=== PATIENT | female | born 1960 ===

== ENCOUNTER → 2017-11-28 | Outpatient (CLI) | payer OTHER ==
--- NOTE | 2017-11-28 20:11 | RADIOLOGY REPORT (SQ) ---
EXAM DESCRIPTION: CHEST 2 VIEWS W/AP LORDOTIC COMPLETED DATE/TIME: 11/28/2017 7:45 pm REASON FOR STUDY: LUNG NODULE COMPARISON: None. TECHNIQUE: Frontal, lateral, and apical lordotic radiographic views of the chest acquired. NUMBER OF VIEWS: Three views. LIMITATIONS: None. FINDINGS: LUNGS AND PLEURA: Hyperinflation. Tiny calcified granulomas in both lungs and 5 mm calcif ied granuloma in the mid right lung. No focal infiltrates, masses or pneumothorax. No pleural effusi on. MEDIASTINUM AND HILAR STRUCTURES: No masses or contour abnormalities. HEART AND VASCULAR STRUCTURES: Heart normal size. No evidence for failure. BONES: No acute findings. HARDWARE: None in the chest. OTHER: No other significant finding. IMPRESSION: COPD. CALCIFIED GRANULOMAS. NO OTHER SIGNIFICANT FINDINGS. TECHNICAL DOCUMENTATION: JOB ID: [id number] [employer]- All Rights Reserved Reading location - IP/workstation name: MIC
== END ==
LOC: RAD 19:22
PROVIDERS: ATTEND Family Medicine
DX: R91.1 Solitary pulmonary nodule (principal); J44.9 Chronic obstructive pulmonary disease, unspecified
CPT/HCPCS: 71047

== ENCOUNTER 2018-07-20 00:03 | Emergency (ER) | payer OTHER ==
[2018-07-20 00:58] LABS: HEMATOCRIT 38.7 % (36.0-47.0); HEMOGLOBIN 13.6 g/dL (12.0-15.5); MEAN CORPUSCULAR HEMOGLOBIN 32.7 pg (27.0-33.4); MEAN CORPUSCULAR HGB CONC 35.3 g/dL (32.0-36.0); MEAN CORPUSCULAR VOLUME 93 fl (80-97); PLATELET COUNT 150 10^3/uL (150-450); RED BLOOD COUNT 4.18 10^6/uL (3.72-5.28); RED CELL DISTRIBUTION WIDTH 13.2 % (11.5-14.0); WHITE BLOOD COUNT 15.8 10^3/uL (4.0-10.5)
[2018-07-20 01:16] LABS: ANION GAP 11 (5-19); BLOOD UREA NITROGEN 23 mg/dL (7-20); CALCIUM 9.1 mg/dL (8.4-10.2); CARBON DIOXIDE 25 mmol/L (22-30); CHLORIDE 104 mmol/L (98-107); GLUCOSE 129 mg/dL (75-110); POTASSIUM 4.1 mmol/L (3.6-5.0); SODIUM 139.6 mmol/L (137-145)
[2018-07-20 01:19] LABS: ABSOLUTE LYMPHOCYTES# (MANUAL) 0.9 10^3/uL (0.5-4.7); ABSOLUTE MONOCYTES # (MANUAL) 0.3 10^3/uL (0.1-1.4); ABSOLUTE NEUTROPHILS# (MANUAL) 14.5 10^3/uL (1.7-8.2); BASOPHILS % (MANUAL) 0 % (0-2); EOSINOPHILS % (MANUAL) 0 % (0-6); LYMPHOCYTES % (MANUAL) 6 % (13-45); MONOCYTES % (MANUAL) 2 % (3-13); SEGMENTED NEUTROPHILS % (MAN) 92 % (42-78); TOTAL CELLS COUNTED 100
[2018-07-20 01:20] LABS: PLATELET COMMENT ADEQUATE; RBC MORPHOLOGY COMMENT NORMO-CYTIC/CHROMIC
--- NOTE | 2018-07-20 01:33 | RADIOLOGY REPORT (SQ) ---
EXAM DESCRIPTION: XR CHEST 1 VIEW COMPLETED DATE/TME: 07/20/2018 00:40 CLINICAL HISTORY: 57 years, Female, sob COMPARISON: None. NUMBER OF VIEWS: 1 TECHNIQUE: Frontal view the chest LIMITATIONS: None. FINDINGS: The heart size is normal. COPD. 6.2 mm nodule in the right midlung. There is infiltrate left lung base. No pneumothorax. Calcified granulomata in the lung apices bilaterally. IMPRESSION: COPD. Left basilar infiltrate. Evidence of prior renal atheromatous disease. 6.2 mm nodule in the right midlung likely reflects granuloma. This could be confirmed with nonemergent CT 2010 [employer]- All Rights Reserved
[2018-07-20 01:36] LABS: NT PRO BNP 112 pg/mL (5-900)
[2018-07-20] MEDS ORDERED: DOXYCYCLINE HYCLATE 100 MG TABLET PO ONE (01:36)
[2018-07-20] MEDS ORDERED: BENZONATATE 100 MG CAPSULE PO ONE (01:36)
[2018-07-20] MEDS ORDERED: ALBUTEROL SULFATE HFA (90 MCG/PUFF) 200 PUFF/8.5 GM MDI IH ONE (01:36)
[2018-07-20 01:40] LABS: TROPONIN I < 0.012 ng/mL
[2018-07-20] MEDS ORDERED: AMOXICILLIN TRIHYDRATE 500 MG CAPSULE PO ONE (01:43)
[2018-07-20] MEDS ORDERED: AZITHROMYCIN 250 MG TABLET PO ONE (01:43)
--- NOTE | 2018-07-20 01:48 | ER Document Report ---
ED General - General Chief Complaint: Shortness Of Breath Stated Complaint: COUGH,SHORTNESS OF BREATH Time Seen by Provider: 07/20/18 00:35 Notes: Patient is a 57-year-old female, current everyday tobacco smoker, history of recurrent pneumonias who presents with 2 days of cough, body aches, subjective fever. Patient states that her symptoms started gradually and have been progressively worsening over that period of time. She states that this feels very similar to when she has had pneumonia in the past. She has not seen her primary care doctor regarding today's concerns. She denies significant associated shortness of breath. She denies vomiting, diarrhea or syncope. No chest pain but does report that she has diffuse body aches most localized to her back and lower rib area which she attributes to persistent coughing. TRAVEL OUTSIDE OF THE [place] IN LAST 30 DAYS: No - Related Data Allergies/Adverse Reactions: bee venom protein (honey bee) Allergy (Verified 07/20/18 03:11) Past Medical History - General Information source: Patient - Social History Smoking Status: Current Every Day Smoker Frequency of alcohol use: None Drug Abuse: None Lives with: Alone Family History: Reviewed & Not Pertinent Review of Systems - Review of Systems Notes: Constitutional: Positive for fever. HENT: Negative for sore throat. Eyes: Negative for visual changes. Cardiovascular: Negative for chest pain. Respiratory: Positive for cough Gastrointestinal: Negative for abdominal pain, vomiting or diarrhea. Genitourinary: Negative for dysuria. Musculoskeletal: Positive for body aches Skin: Negative for rash. Neurological: Negative for headaches, weakness or numbness. 10 point ROS negative except as marked above and in HPI. Physical Exam - Vital signs Vitals: Temp Pulse Resp BP Pulse Ox 99.8 F 98 20 138/68 H 94 07/20/18 00:11 07/20/18 00:11 07/20/18 00:11 07/20/18 00:11 07/20/18 00:11 Interpretation: Normal Notes: PHYSICAL EXAMINATION: GENERAL: Well-appearing, well-nourished and in no acute distress. HEAD: Atraumatic, normocephalic. EYES: Pupils equal round and reactive to light, extraocular movements intact, sclera anicteric, conjunctiva are normal. ENT: nares patent, oropharynx clear without exudates. Moist mucous membranes. NECK: Normal range of motion, supple without lymphadenopathy LUNGS: Rhonchorous at the bases bilaterally. No tachypnea or retractions. HEART: Regular rate and rhythm without murmurs ABDOMEN: Soft, nontender, normoactive bowel sounds. No guarding, no rebound. No masses appreciated. EXTREMITIES: Normal range of motion, no pitting or edema. No cyanosis. NEUROLOGICAL: Face symmetric. Tongue protrudes midline. Extraocular motions intact. Pupils are 2 mm and equally reactive. Normal speech, normal gait. 5 out of 5 strength in both the distal and proximal upper and lower extremities bilaterally. Sensation is grossly intact throughout. Finger to nose testing normal. Pronator drift normal. PSYCH: Normal mood, normal affect. SKIN: Warm, Dry, normal turgor, no rashes or lesions noted. Course - Re-evaluation Re-evalutation: 07/20/18 01:44 Patient presents with cough, sputum production, body aches and fever at home. On exam the patient is overall well in appearance, no acute distress, no tachycardia, hypoxemia or tachypnea on exam. The patient is noted on chest x- ray to have a left lower lobe infiltrate consistent with an acute pneumonia. This would account for the patient's symptoms of cough, body aches and myalgias. Patient did complain of some left leg numbness and tingling but full neurologic exam completely unremarkable without any focal sensory or motor deficits. Patient has a curb 65 score of 0, appropriate for outpatient management. The patient has declined doxycycline stating that she has had adverse reactions in the past. She was started on a combination of azithromycin and amoxicillin. At this time will discharge with return precautions and follow-up recommendations. Verbal discharge instructions given a the bedside and opportunity for questions given. Medication warnings reviewed. Patient is in agreement with this plan and has verbalized understanding of return precautions and the need for primary care follow-up in the next 24-72 hours. - Vital Signs Vital signs: Temp Pulse Resp BP Pulse Ox 98.8 F 86 16 104/67 92 07/20/18 02:09 07/20/18 02:09 07/20/18 02:09 07/20/18 02:09 07/20/18 02:09 - Laboratory Result Diagrams: 07/20/18 00:45 07/20/18 00:45 Laboratory results interpreted by me: 07/20/18 07/20/18 00:45 00:45 WBC 15.8 H Seg Neuts % (Manual) 92 H Lymphocytes % (Manual) 6 L Monocytes % (Manual) 2 L Abs Neuts (Manual) 14.5 H BUN 23 H Glucose 129 H - Diagnostic Test Radiology reviewed: Image reviewed, Reports reviewed Radiology results interpreted by me: 07/20/18 01:46 Chest x-ray: Left lower lobe infiltrate Discharge - Discharge Clinical Impression: Body aches Left lower lobe pneumonia Qualifiers: Pneumonia type: due to unspecified organism Qualified Code(s): J18.1 - Lobar pneumonia, unspecified organism Condition: Good Disposition: HOME, SELF-CARE Additional Instructions: You have been diagnosed with a pneumonia. It is very important that you take all of your antibiotics until they are gone even if you are feeling better. Please return to the emergency department immediately if you began having worsening shortness of breath, become confused, have worsening pain, pass out, have persistent vomiting that prevents you from being able to drink fluids for more than 12 hours, or have any other symptoms that are worrisome to you. Please follow-up with your primary care doctor in the next 1-2 days. Prescriptions: Amoxicillin 1 tab PO TID #30 tab Azithromycin 250 mg PO DAILY 4 Days #4 tablet Forms: Return to Work Referrals: EZIO SAENZ MD [Primary Care Provider] - Follow up tomorrow
[2018-07-20 02:10] VITALS: BP 104/67
== END 2018-07-20 02:19 | disposition home or self-care (01) ==
LOC: ER 00:03
DX: J18.1 Lobar pneumonia, unspecified organism (principal); F17.200 Nicotine dependence, unspecified, uncomplicated; R05 Cough; M54.9 Dorsalgia, unspecified; R07.81 Pleurodynia; R50.9 Fever, unspecified; Z91.030 Bee allergy status; R20.0 Anesthesia of skin; R20.2 Paresthesia of skin
CPT/HCPCS: 99285; 36415; 85025; 80048; 84484; 83880; 71045; J3490